=== PATIENT | female | born 2000 | race Hispanic/Latino ===

== ENCOUNTER 2025-02-22 10:37 | Emergency (ER) | payer OTHER ==
[~2025-02-22] VITALS: Ht 149.9 cm; Wt 70.8 kg
--- NOTE | 2025-02-22 10:52 | NUR ---
kevon collectded and sent
--- NOTE | 2025-02-22 11:08 | ERN ---
ED Note History of Present Illness Stated Complaint: VAGINAL BLEEDING Chief Complaint: Vaginal Bleeding Time Seen by MD: 10:53 Time Seen by Midlevel: 10:53 Dictation: Ms. Block is a 24 year old female with history of obesity who presented to the Emergency Department this evening for evaluation of vaginal bleeding. She states she believes that she is 6 weeks . . (LMP 12/23/24 irregular). She reports one week of intermittent lower abdominal cramping. She states she has also noted some vaginal spotting with pink/brown discharge. She also reports having some low back pain and occasional nausea. She states she has not yet had OB appointment but plans to see Dr. Yaima Baltazar. She denies fever, chills, shortness of breath, cough, chest pain, palpitations, edema,vomiting, hematemesis, constipation, diarrhea, melena, hematochezia, dysuria, hematuria, headache, dizziness, or focal weakness/paresthesia Past Medical History Past Medical History: No Pertinent History Additional Past Medical Hx: denies pmhx Surgical History: None PSYCH History: no pertinent psych hx Social History: Negative, Lives with family LMP: Dec 23, 2024 : 1 Para: 0 RN Note Reviewed/Agreed w/PFSH: Yes Review of System Dictation REVIEW OF SYSTEMS: CONSTITUTIONAL: Patient denies fevers, chills, sweats and weight changes. EYES: Patient denies any visual symptoms. EARS, NOSE, AND THROAT: No difficulties with hearing. No symptoms of rhinitis or sore throat. CARDIOVASCULAR: Patient denies chest pains, palpitations, orthopnea and paroxysmal nocturnal dyspnea. RESPIRATORY: No dyspnea on exertion, no wheezing or cough. GI: No vomiting, diarrhea, constipation, abdominal pain, hematochezia or melena. Reports nausea. : No urinary hesitancy or dribbling. No nocturia or urinary frequency. No abnormal urethral discharge. Reports vaginal spotting (pink/brown) x 1 week. Reports intermittent lower abdominal cramping. Reports low back pain. MUSCULOSKELETAL: No myalgias or arthralgias. NEUROLOGIC: No chronic headaches, no seizures. Patient denies numbness, tingling or weakness. PSYCHIATRIC: Patient denies problems with mood disturbance. No problems with anxiety. ENDOCRINE: No excessive urination or excessive thirst. DERMATOLOGIC: Patient denies any rashes or skin changes. Initial Vital Sign VS Vital Signs Date Time Temp Pulse Resp B/P (MAP) Pulse Ox O2 Delivery O2 Flow Rate FiO2 02/22/25 10:40 98.4 90 16 135/77 100 Room Air 0 02/22/25 10:45 21 Physical Exam Dictation Vital signs: Reviewed. Constitutional: No acute distress. Non-toxic appearing. Calm/pleasant. Significant other at bedside. Head/Face: Normocephalic, atraumatic. Eyes: Periorbital areas with no swelling, redness, or edema. Lids and lashes are normal. Conjunctival injection is absent. Sclera anicteric. Pupils equal, round, reactive to light. ENT: Pinnas intact and no signs of trauma or erythema. Ear canals clear and no discharge. TMs no erythema. No nasal discharge or bleeding noted. Oropharynx with no exudate, redness, swelling, masses, exudates, or evidence of obstruction. Uvula midline. Mucous membranes moist. Neck: Trachea midline, no masses palpated, and no cervical lymphadenopathy. No swelling. Supple, full range of motion. Chest/Axilla: No tenderness, no crepitus, no paradoxical movement, no retrac tions. Cardiovascular: Regular rate, regular rhythm, no murmur, no gallops. Symmetric pulses. No peripheral edema. Respiratory: Respirations even and unlabored. Lung sounds clear; no wheezes, rales or rhonchi. Gastrointestinal Obese. No distention is appreciated. Bowel sounds are normal. No mass or organomegaly . There is no tenderness. No rebound. No rigidity. No voluntary or involuntary guarding. No Rothman's sign. : No vaginal bleeding at this time. Urine clear/yellow. Negative CVA tenderness bilaterally. Neurological: Normal speech, gross motor function intact, gross sensory function intact. No focal weakness/Paresthesia. Musculoskeletal/Extremities: All extremities have full range of motion, no pain or tenderness on palpation. Symmetric pulses. Integumentary: Intact. Skin is normal color, warm and dry. Cap refill less than 3 seconds. Results (Laboratory/Radiology) Laboratory/Radiology Laboratory Tests Test 02/22/25 10:53 02/22/25 11:24 Urine Color COLORLESS (YELLOW) Urine Appearance CLEAR (CLEAR) Urine pH 7.5 (5.0-8.0) Urine Specific [place] 1.004 (1.001-1.031) Urine Protein NEGATIVE mg/dL (NEGATIVE) Urine Glucose (UA) NEGATIVE mg/dL (NEGATIVE) Urine Ketones NEGATIVE mg/dL (NEGATIVE) Urine Occult Blood +- (TRACE) (NEGATIVE) H Urine Nitrate NEGATIVE (NEGATIVE) Urine Bilirubin NEGATIVE mg/dL (NEGATIVE) Urine Urobilinogen 0.2 mg/dL (0.2-1.0) Urine Leukocyte Esterase NEGATIVE [place]/uL Urine RBC 0-1 /HPF (0-1) Urine WBC 0-1 /HPF (0-1) Urine Squamous Epithelial Cells FEW /HPF (0-2) Urine Bacteria RARE /HPF (None Seen) White Blood Count 7.0 K/uL (4.8-10.8) Red Blood Count 4.51 MIL/uL (4.00-5.50) Hemoglobin 13.5 g/dL (12.0-16.0) Hematocrit 40.3 % (36-48) Mean Corpuscular Volume 89.4 fL (79-99) Mean Corpuscular Hemoglobin 29.9 pg (27.0-33.0) Mean Corpuscular Hemoglobin Concent 33.5 g/dL (32.0-36.0) Red Cell Distribution Width 13.2 % (11.0-15.5) Platelet Count 335 K/uL (130-400) Mean Platelet Volume 8.4 fL (7.5-10.5) Immature Granulocyte % (Auto) 0.4 % (0-1) Neutrophils (%) (Auto) 58.6 % (40.0-77.0) Lymphocytes (%) (Auto) 35.6 % (21.0-51.0) Monocytes (%) (Auto) 4.1 % (3.0-13.0) Eosinophils (%) (Auto) 0.6 % (0.0-8.0) Basophils (%) (Auto) 0.7 % (0.0-5.0) Neutrophils # (Auto) 4.1 K/uL (1.8-7.7) Lymphocytes # (Auto) 2.5 K/uL (1.0-4.8) Monocytes # (Auto) 0.3 K/uL (0.1-1.0) Eosinophils # (Auto) 0.04 K/uL (0.00-0.70) Basophils # (Auto) 0.05 K/uL (0.00-0.20) Absolute Immature Granulocyte (auto 0.03 K/uL (0-1) Nucleated Red Blood Cells 0.0 % (0.0-0.19) Sodium Level 138 mmol/L (136-145) Potassium Level 3.6 mmol/L (3.5-5.1) Chloride Level 102 mmol/L (101-111) Carbon Dioxide Level 26 mmol/L (21-32) Blood Urea Nitrogen 6 mg/dL (7-18) L Creatinine 0.6 mg/dL (0.5-1.0) Glomerular Filtration Rate Calc 129 mL/min (>90) Random Glucose 140 mg/dL (70-105) H Total Calcium 8.6 mg/dL (8.5-10.1) Human Chorionic Gonadotropin, Quant 1011 mIU/mL (0-5) H Labs Reviewed?: Yes Ultrasound Comment: PATIENT: SHARAN BLOCK MR#: [id number] : 2000 SEX: F AGE: 24 LOCATION: [facility] ORDER [id number] STATUS: [facility] REPORT#: [id number] SERVICE 1117 REASON: lower abdominal cramping/spotting, first trimester ORDERING PHYSICIAN: LUCIEN DICK NP PROCEDURE: OB <14 - US OB <14 WEEKS EXAM: US Obstetrical, Complete <14 weeks CLINICAL HISTORY: lower abdominal cramping/spotting, first trimester TECHNIQUE: Transabdominal imaging of the maternal pelvis and a <14 week gestation with image documentation. COMPARISON: None provided. FINDINGS: GESTATION: No intra-uterine gestational sac. UTERUS: The uterus measures 7.2 x 3.5 x 3.3 cm. The endometrium thickness measures 1.4 cm. No myometrial mass. OVARIES: The right ovary measures 2.6 x 1.8 x 2.4 cm, and the left ovary measures 1.5 x 1.6 x 1.9 cm. Unremarkable. No mass. FREE FLUID: No free fluid. Cul-de-sac within normal limits. IMPRESSION: 1. No intrauterine gestational sac identified. 2. Thickened endometrium measuring 1.4 cm. 3. No beta-hCG was available at the time of scan. Please correlate with beta-hCG values. /[place] DICTATED BY: ALLISON RAMOS Jr., MD DATE: 02/22/251304 ELECTRONICALLY SIGNED BY: ALLISON RAMOS Jr., MD DATE: 02/22/25 130 ED Course ED Course Orders Procedure Category Date Status Time Cbc With Differential LAB 02/22/25 Complete 11:17 Basic Metabolic Panel LAB 02/22/25 Complete 11:17 Urinalysis Profile LAB 02/22/25 Complete 11:17 Hcg,Quantitative LAB 02/22/25 Complete 11:17 Us Ob <14 Weeks US 02/22/25 Resulted 11:17 Vital Signs Date Time Temp Pulse Resp B/P (MAP) Pulse Ox O2 Delivery O2 Flow Rate FiO2 02/22/25 10:45 98.4 90 16 135/77 100 Room Air* 0 21 02/22/25 10:40 98.4 90 16 135/77 100 Room Air 0 Vital signs stable; afebrile with room air SpO2 100%. Laboratory findings as noted below. No elevation of WBCs H&H stable. Glucose 140. Quantitative hCG 1011. UA clear. ultrasound preliminary report showed no IUP. Patient will be discharged to home with strict return precautions. 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 Patient counseled extensively regarding signs of ectopic rupture or heavy bleeding and verbalized understanding. Medical Decision Making MDM MDM: Differential diagnosis: Threatened AB, ectopic , UTI Rationale: Tests considered and ordered secondary to shared decision making include: Lab, US Previous outside records reviewed: Old ER visits. Risk of complication and/or morbidity or mortality of patient management: None Medications-Per medication reconciliation Need for hospitalization: Patient does not meet criteria for hospitalization. Need for emergency major/minor surgery: No There are no social concerns with this patient. Prescription drug management: N/A Prescriptions will include symptomatic care Patient's prior external medical records from other ER visits were reviewed by me as indicated. Prior testing and results from previous visits were reviewed. Prior tests were taken into account with medical decision making and resource utilization, independent historian/historians were used to obtain complete medical history. I independently interpreted the test that were performed, results were reviewed by me and considered findings on radiology if ordered. Medical management and examination interpretation discussions were had by me with other qualified healthcare professionals as indicated for the patient's care. DX & DISP Disposition: Discharge Departure Impression: Primary Impression: possible early IUP Additional Impression: Threatened Condition: Stable Scripts Vit37/Iron/Folic Acid ([place] Chewable Tablet) 29 Mg Iron-1 Mg Tab.chew 1 TAB PO DAILY for 30 Days, #30 TAB 0 Refills Prov: LUCIEN DICK NP 02/22/25 Additional Instructions: you were evaluated in the emergency department for vaginal spotting in early . Your blood work shows a UR , but the is still very early. Your hCG level is 1011, which is below the level at which we can usually see a on ultrasound. No was seen in the uterus or elsewhere on your ultrasound today. This does not necessarily mean something is wrong, but it is too early to be sure. At this stage possibilities include; a very early normal not yet visible on ultrasound. And early miscarriage. An ectopic ( outside the uterus), which can become dangerous if it ruptures. 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 Return to the emergency department immediately if you develop any of the following: Worsening abdominal or pelvic pain. Heavy vaginal bleeding (soaking more than one pad per hour). Passing large clots. Dizziness, fainting, or shoulder pain. Fever or chills. Until your is located in confirmed to be progressing normally, avoid sexual intercourse and strenuous activity. Rest, stay well hydrated if keep her follow up appointment as scheduled. Referrals: SELF,REFERRAL (PCP) YAIMA BALTAZAR MD Time of Disposition: 12:31 LUCIEN DICK NP Feb 22, 2025 11:08
[2025-02-22 11:30] LABS: IMMATURE GRANULOCYTE ABSOLUTE 0.03 K/uL (0-1); NUCLEATED RED BLOOD CELLS 0.0 % (0.0-0.19); PLATELET COUNT (AUTO) 335 K/uL (130-400); RED BLOOD CELL COUNT(AUTO) 4.51 MIL/uL (4.00-5.50); RED CELL DISTRIBUTION WIDTH 13.2 % (11.0-15.5); WHITE BLOOD COUNT (AUTO) 7.0 K/uL (4.8-10.8)
[2025-02-22 11:42] LABS: CREATININE 0.6 mg/dL (0.5-1.0); GLOMERULAR FILTR. RATE CALC 129.0 mL/min (>90); GLUCOSE,RANDOM 140.0 mg/dL (70-105); SODIUM SERUM 138.0 mmol/L (136-145); UREA NITROGEN, BLOOD 6.0 mg/dL (7-18)
--- NOTE | 2025-02-22 12:06 | HMCIMG ---
EXAM: US Obstetrical, Complete <14 weeks CLINICAL HISTORY: lower abdominal cramping/spotting, first trimester TECHNIQUE: Transabdominal imaging of the maternal pelvis and a <14 week gestation with image documentation. COMPARISON: None provided. FINDINGS: GESTATION: No intra-uterine gestational sac. UTERUS: The uterus measures 7.2 x 3.5 x 3.3 cm. The endometrium thickness measures 1.4 cm. No myometrial mass. OVARIES: The right ovary measures 2.6 x 1.8 x 2.4 cm, and the left ovary measures 1.5 x 1.6 x 1.9 cm. Unremarkable. No mass. FREE FLUID: No free fluid. Cul-de-sac within normal limits. IMPRESSION: 1. No intrauterine gestational sac identified. 2. Thickened endometrium measuring 1.4 cm. 3. No beta-hCG was available at the time of scan. Please correlate with beta-hCG values. /[place]
[2025-02-22 12:09] LABS: HCG,QUANTITATIVE 1011.0 mIU/mL (0-5)
[2025-02-22 12:15] LABS: APPEARANCE,URINE CLEAR (CLEAR); GLUCOSE, URINE (UA) NEGATIVE (NEGATIVE); LEUKOCYTE ESTERASE ,URINE NEGATIVE Leu/uL (NEGATIVE); NITRATE,URINE NEGATIVE (NEGATIVE); OCCULT BLOOD,URINE +- (TRACE) (NEGATIVE)
[2025-02-22 12:16] LABS: ADD UA MICROSCOPIC YES
[2025-02-22 12:19] LABS: SQUAMOUS EPITHELIAL CELL,UR FEW /HPF (0-2)
[2025-02-22] MEDS ORDERED: PREN-155 PO (12:27)
[2025-02-22 12:53] VITALS: BP 128/74; PULSE 84; RESP 16; TEMP 98.4; O2SAT 100
== END 2025-02-22 12:55 | disposition home or self-care (01) ==
LOC: EDH 10:37
DX: O20.0 Threatened abortion (principal); Z3A.00 Weeks of gestation of pregnancy not specified
CPT/HCPCS: 36415; 76801; 80048; 81001; 84702; 85025; 99284